=== PATIENT | female | born 1955 | race Caucasian/White ===

== ENCOUNTER 2017-11-19 11:55 | Emergency (ER) | payer OTHER, SELFPAY ==
[2017-11-19 12:04] VITALS: BP 149/82; PULSE 72; RESP 15; TEMP 36.8; O2SAT 97; BMI 25.5
[2017-11-19] MEDS: ONDANSETRON 4 MG/2 ML INJ IV (12:30)
[2017-11-19] MEDS: SODIUM CHLORIDE 0.9% 1,000 ML 1000 ML IV (12:30)
[2017-11-19 12:40] LABS: Alanine Aminotransferase 28 IU/L (9-52); Albumin 4.6 g/dL (3.5-5.0); Albumin Globulin Ratio 1.8 (1.0-2.8); Alkaline Phosphatase 71 U/L (38-126); Aspartate Aminotransferase 24 IU/L (14-36); BUN Creatinine Ratio 24.3 (6-22); Bilirubin Total 0.7 mg/dL (0.2-1.3); Blood Urea Nitrogen 17 mg/dL (7-17); Calcium 9.2 mg/dL (8.4-10.2); Carbon Dioxide 26 mmol/L (22-32); Chloride 104 mmol/L (98-107); Estimated Glomerular Filt Rate > 60.0 mL/min (>60); Globulin 2.6 g/dL (1.7-4.1); Glucose 112 mg/dL (80-110); HEMOLYSIS < 15 (0-50); Lipase 379 U/L (23-300); Potassium 3.7 mmol/L (3.4-5.1); Sodium 142 mmol/L (137-145); Total Protein 7.2 g/dL (6.3-8.2)
--- NOTE | 2017-11-19 12:45 | ED_ITS ---
HPI - Dizziness <Eloise Hollingsworth PA-C - Last Filed: 11/19/17 21:26> General Chief Complaint: Dizziness Stated Complaint: DIZZINESS,NAUSEA Time Seen by Provider: 11/19/17 12:19 Source: patient Mode of arrival: ambulatory Limitations: no limitations History of Present Illness HPI Narrative: This 62 year old female comes to ED today due to onset of vomiting and dry heaves this morning with nausea. She states that her head feels funny, like her brain is foggy, and feels like she could tip over when walking. She states that she feels weak all over, no focal weakness. She states she has slight headache. She denies any vision change. She denies any abdominal pain. She denies any chest pain, dyspnea, pain in the extremities. She denies any recent upper respiratory symptoms, illness, or fever. She did eat dinner out last night and felt normal yesterday, did not notice any undercooked food. She denies any urinary symptoms, bowel habit changes or diarrhea. She thinks that she vomited 3 times this morning and had dry heaves frequently. States she had some coffee and half a doughnut, nothing else to eat today. She states that she is generally healthy with no chronic medical conditions at all Related Data Previous Rx's Medication Instructions Recorded meclizine 25 mg PO Q4-6H PRN #14 tab 11/19/17 ondansetron 4 mg PO Q6-8H PRN #7 tab 11/19/17 Allergies Allergy/AdvReac Type Severity Reaction Status Date / Time SULFA Allergy Severe HIVES, Uncoded 05/25/17 12:16 ITCHING PENICILLIN Allergy Unknown Uncoded 05/25/17 12:16 Review of Systems <Eloise Hollingsworth PA-C - Last Filed: 11/19/17 21:26> Review of Systems All systems reviewed & are unremarkable except as noted in HPI and below PFSH <Eloise Hollingsworth PA-C - Last Filed: 11/19/17 21:26> Comment: denies ETOH or street drugs Exam <KIMBER Suarez Last Filed: 11/19/17 21:26> Narrative Exam Narrative: GENERAL APPEARANCE: Patient sitting comfortably, in no distress. HEENT: PERRL, EOMI, there are few beats of horizontal nystagmus noted with rightward gaze. Normal ear canals, right TM dull and slightly retracted with scarring, left is normal aside from scar, normal oropharynx NECK: Supple, no masses LUNGS: Clear to auscultation bilaterally. HEART: Rate and rhythm regular without murmur, normal S1 and S2, no S3 or S4. No carotid bruit ABDOMEN: Soft, NT, ND, + BS x 4 quadrants NEUROLOGIC: Alert and oriented, normal speech, and coordination. +Hallpike maneuver EXTREMITIES: no cyanosis or edema, pedal pulses intact, no calf tenderness Initial Vital Signs Initial Vital Signs: Vital Signs Temperature 98.2 F 11/19/17 12:04 Pulse Rate 72 11/19/17 12:04 Respiratory Rate 15 11/19/17 12:04 Blood Pressure 149/82 H 11/19/17 12:04 Pulse Oximetry 97 11/19/17 12:04 <Sadaf Leigh DO - Last Filed: 11/20/17 08:49> Initial Vital Signs Initial Vital Signs: Vital Signs Temperature 98.2 F 11/19/17 12:04 Pulse Rate 72 11/19/17 12:04 Respiratory Rate 15 11/19/17 12:04 Blood Pressure 149/82 H 11/19/17 12:04 Pulse Oximetry 97 11/19/17 12:04 Course <Eloise Hollingsworth PA-C - Last Filed: 11/19/17 21:26> Course Narrative: Patient reported improvement in LAUREN following fluids, and was able to ambulate and move more comfortably after meclizine. She reported improvement in nausea initially after zofran and was tolerating fluids, requested a 2nd dose and had continued improvement. She did not have recurrent dry heaves or vomiting while here. advised continuing meclizine, avoid driving , and PCP follow-up if not better over the next few days. Advised of need for further evaluation and referral if not improving, as well as return if any acutely worsening symptoms again and she is agreeable Orders Ordered: Discontinued Medications Sodium Chloride (Normal Saline 0.9%) 1,000 mls @ 1,000 mls/hr IV BOLUS ONE Stop: 11/19/17 13:18 Last Infusion: 11/19/17 13:33 Dose: 0 mls/hr Admin: 11/19/17 12:30 Dose: 1,000 mls/hr Meclizine HCl (Antivert) 25 mg PO NOW ONE Stop: 11/19/17 12:46 Last Admin: 11/19/17 12:51 Dose: 25 mg Meclizine HCl (Antivert) 25 mg PO NOW ONE Stop: 11/19/17 13:49 Last Admin: 11/19/17 13:57 Dose: 25 mg Ondansetron HCl (Zofran) 4 mg IV NOW ONE Stop: 11/19/17 12:20 Last Admin: 11/19/17 12:30 Dose: 4 mg Ondansetron HCl (Zofran Odt) 4 mg PO NOW ONE Stop: 11/19/17 14:35 Last Admin: 11/19/17 14:36 Dose: 4 mg Vital Signs - 8 hr 11/19/17 14:00 11/19/17 15:23 Temperature 98.1 F Pulse Rate 73 75 Respiratory Rate 19 20 Blood Pressure 145/70 H Blood Pressure [Right Arm] 145/74 H Pulse Oximetry 94 97 <Sadaf Leigh DO - Last Filed: 11/20/17 08:49> Orders Ordered: Discontinued Medications Sodium Chloride (Normal Saline 0.9%) 1,000 mls @ 1,000 mls/hr IV BOLUS ONE Stop: 11/19/17 13:18 Last Infusion: 11/19/17 13:33 Dose: 0 mls/hr Admin: 11/19/17 12:30 Dose: 1,000 mls/hr Meclizine HCl (Antivert) 25 mg PO NOW ONE Stop: 11/19/17 12:46 Last Admin: 11/19/17 12:51 Dose: 25 mg Meclizine HCl (Antivert) 25 mg PO NOW ONE Stop: 11/19/17 13:49 Last Admin: 11/19/17 13:57 Dose: 25 mg Ondansetron HCl (Zofran) 4 mg IV NOW ONE Stop: 11/19/17 12:20 Last Admin: 11/19/17 12:30 Dose: 4 mg Ondansetron HCl (Zofran Odt) 4 mg PO NOW ONE Stop: 11/19/17 14:35 Last Admin: 11/19/17 14:36 Dose: 4 mg Vital Signs - 8 hr 11/19/17 14:00 11/19/17 15:23 Temperature 98.1 F Pulse Rate 73 75 Respiratory Rate 19 20 Blood Pressure 145/70 H Blood Pressure [Right Arm] 145/74 H Pulse Oximetry 94 97 MDM - Dizziness <Eloise Hollingsworth PA-C - Last Filed: 11/19/17 21:26> Lab Data Attestation: I reviewed the patient's lab results. Result diagrams: 11/19/17 12:14 11/19/17 12:14 Lab Results 11/19/17 11/19/17 Range/Units 12:14 12:14 WBC 7.3 (4.5-11.0) X10^3/uL RBC 4.42 (4.0-5.2) X10^6/uL Hgb 13.2 (12.0-16.0) g/dL Hct 38.0 (36-46) % MCV 86.0 (80-100) fL MCH 29.9 (26-34) PG MCHC 34.7 (30-36) % RDW 12.4 (11.6-14.8) % Plt Count 201 (150-400) X10^3/uL Neut % (Auto) 84.9 H (50-75) % Lymph % (Auto) 10.2 L (25-40) % Bertie % (Auto) 3.2 (3-14) % Eos % (Auto) 0.9 L (2-4) % Baso % (Auto) 0.8 (0-2) % Neut # (Auto) 6200 H (4655-9063) /uL Sodium 142 (137-145) mmol/L Potassium 3.7 (3.4-5.1) mmol/L Chloride 104 (98-107) mmol/L Carbon Dioxide 26 (22-32) mmol/L BUN 17 (7-17) mg/dL Creatinine 0.70 (0.52-1.04) mg/dL Estimated GFR > 60.0 (>60) mL/min BUN/Creatinine Ratio 24.3 H (6-22) Glucose 112 H (80-110) mg/dL Calcium 9.2 (8.4-10.2) mg/dL Total Bilirubin 0.7 (0.2-1.3) mg/dL AST 24 (14-36) IU/L ALT 28 (9-52) IU/L Alkaline Phosphatase 71 (38-126) U/L Total Protein 7.2 (6.3-8.2) g/dL Albumin 4.6 (3.5-5.0) g/dL Globulin 2.6 (1.7-4.1) g/dL Albumin/Globulin Ratio 1.8 (1.0-2.8) Lipase 379 H (23-300) U/L Urine Dip Bedside Urine Glucose Negative Bedside Urine Bilirubin - Negative Bedside Urine Ketone + 15 Urine Specific [place] 1.015 Bedside Urine Occult Blood - Negative Bedside Urine pH 8.0 Bedside Urine Protein - Negative Bedside Urine Urobilinogen - Negative Bedside Urine Nitrite - Negative Bedside Urine Leukocytes - Negative Esterase ECG Data Attestation: I personally reviewed and interpreted this ECG as follows: ( normal sinus rhythm with rate 71, normal axis) <Sadaf Leigh DO - Last Filed: 11/20/17 08:49> Lab Data Attestation: I reviewed the patient's lab results. Lab Results 11/19/17 11/19/17 Range/Units 12:14 12:14 WBC 7.3 (4.5-11.0) X10^3/uL RBC 4.42 (4.0-5.2) X10^6/uL Hgb 13.2 (12.0-16.0) g/dL Hct 38.0 (36-46) % MCV 86.0 (80-100) fL MCH 29.9 (26-34) PG MCHC 34.7 (30-36) % RDW 12.4 (11.6-14.8) % Plt Count 201 (150-400) X10^3/uL Neut % (Auto) 84.9 H (50-75) % Lymph % (Auto) 10.2 L (25-40) % Bertie % (Auto) 3.2 (3-14) % Eos % (Auto) 0.9 L (2-4) % Baso % (Auto) 0.8 (0-2) % Neut # (Auto) 6200 H (2648-0323) /uL Sodium 142 (137-145) mmol/L Potassium 3.7 (3.4-5.1) mmol/L Chloride 104 (98-107) mmol/L Carbon Dioxide 26 (22-32) mmol/L BUN 17 (7-17) mg/dL Creatinine 0.70 (0.52-1.04) mg/dL Estimated GFR > 60.0 (>60) mL/min BUN/Creatinine Ratio 24.3 H (6-22) Glucose 112 H (80-110) mg/dL Calcium 9.2 (8.4-10.2) mg/dL Total Bilirubin 0.7 (0.2-1.3) mg/dL AST 24 (14-36) IU/L ALT 28 (9-52) IU/L Alkaline Phosphatase 71 (38-126) U/L Total Protein 7.2 (6.3-8.2) g/dL Albumin 4.6 (3.5-5.0) g/dL Globulin 2.6 (1.7-4.1) g/dL Albumin/Globulin Ratio 1.8 (1.0-2.8) Lipase 379 H (23-300) U/L Urine Dip Bedside Urine Glucose Negative Bedside Urine Bilirubin - Negative Bedside Urine Ketone + 15 Urine Specific [place] 1.015 Bedside Urine Occult Blood - Negative Bedside Urine pH 8.0 Bedside Urine Protein - Negative Bedside Urine Urobilinogen - Negative Bedside Urine Nitrite - Negative Bedside Urine Leukocytes - Negative Esterase ECG Data Attestation: I personally reviewed and interpreted this ECG as follows: Prior ECG tracings: available for review Interpretation: Sinus rhythm rate [address] changes similar to previous EKG here interval 156 QRS 12 QTC 416 Discharge Plan Departure Patient Disposition: Home Clinical Impression: Benign paroxysmal positional vertigo, Nausea & vomiting Discharge Date/Time: 11/19/17 15:25 Interventions: ED Discharge Assessment Last Done: 11/19/17 15:23 Instructions: DI for Benign Paroxysmal Positional Vertigo Activity Restrictions/Additional Instructions: You appear to have vertigo which has caused your nausea. Since you are feeling better, it is okay for you to monitor at home, but as we talked about, you must return right away if you have any new or acutely worsening symptoms again. Please rest, and take the motion sickness medicine meclizine to help with the dizziness and nausea. Avoid turning your head sharply as we talked about, and change positions very slowly. You should see your PCP if this is not getting better over the next few days. You should not drive until it is resolved, and you should not drive while taking the meclizine as it can make you sleepy. You can add the additional antinausea medicine if you need it (Odansetron). Prescriptions: New meclizine 25 mg tablet 25 mg PO Q4-6H PRN (Reason: dizziness) Qty: 14 RF: 0 ondansetron 4 mg tablet,disintegrating 4 mg PO Q6-8H PRN (Reason: nausea and vomiting) Qty: 7 RF: 0 <Sadaf Leigh DO - Last Filed: 11/20/17 08:49> Cosign ED Attending Anilature Attestation: I was immediately available in the department for consultation. Documentation has been reviewed. I agree with assessment and plan.
[2017-11-19] MEDS: MECLIZINE HCL 12.5 MG TABLET 25 MG PO ×2 (12:51→13:57)
[2017-11-19 12:53] VITALS: BP 148/71; PULSE 71; RESP 15; O2SAT 99
[2017-11-19 12:53] LABS: Add Manual Diff / Slide Review NO; Basophils Percent Auto 0.8 % (0-2); Eosinophils Percent Auto 0.9 % (2-4); Hemoglobin 13.2 g/dL (12.0-16.0); Lymphocytes Percent Auto 10.2 % (25-40); Mean Corpuscular HGB Conc 34.7 % (30-36); Mean Corpuscular Hemoglobin 29.9 PG (26-34); Monocytes Percent Auto 3.2 % (3-14); Neutrophils Absolute Auto 6200 /uL (3000-5900); Neutrophils Percent Auto 84.9 % (50-75); Platelet Count 201 X10^3/uL (150-400); Red Blood Cell Count 4.42 X10^6/uL (4.0-5.2); Red Cell Distribution Width 12.4 % (11.6-14.8); White Blood Cell Count 7.3 X10^3/uL (4.5-11.0)
--- NOTE | 2017-11-19 12:54 | PC.NURSE ---
Patient drifting off to sleep and o2 saturation decreases to 84% on RA. Pt placed on 1 L NC. 99% o2 when awake. 93% o2 when sleeping.
[2017-11-19 14:00] VITALS: BP 145/74; PULSE 73; RESP 19; O2SAT 94
[2017-11-19] MEDS: ONDANSETRON 4 MG ODT PO (14:36)
[2017-11-19 15:23] VITALS: BP 145/70; PULSE 75; RESP 20; TEMP 36.7; O2SAT 97
--- NOTE | 2017-11-24 16:08 | PC.NURSE ---
Pt feeling better since visit,pt has follow up visit scheduled. Pt had no improvement to suggest.
== END 2017-11-19 15:25 | disposition home or self-care (01) ==
PROVIDERS: Emergency Provider Internal Medicine
DX: H81.10 Benign paroxysmal vertigo, unspecified ear (principal); R11.2 Nausea with vomiting, unspecified
CPT/HCPCS: 80053; 81003; 83690; 85025; 93005; 96361; 96374; 99283; 99284; J2405

== ENCOUNTER → 2018-02-27 14:38 | Outpatient (CLI) | payer OTHER, SELFPAY ==
--- NOTE | 2018-02-27 | DI.MG.S_ITS ---
BILATERAL DIGITAL SCREENING MAMMOGRAM 3D/2D WITH CAD: 02/27/2018 CLINICAL: Routine screening. Comparison is made to exam dated: 01/27/2015 mammogram - [facility]. The tissue of both breasts is heterogeneously dense. This may lower the sensitivity of mammography. Current study was also evaluated with a Computer Aided Detection (CAD) system. There are benign calcifications in the right breast. No significant masses, calcifications, or other findings are seen in either breast. There has been no significant interval change. IMPRESSION: There is no mammographic evidence of malignancy. A 1 year screening mammogram is recommended. This exam was interpreted at Station ID: [id number]. NOTE: For mammograms, a report in lay terms will be sent to the patient. Approximately 15% of breast malignancies will not be visualized mammographically. In the management of a palpable breast mass, a negative mammogram must not discourage biopsy of a clinically suspicious lesion. Electronically Signed By: Rusty vigil/carrol:03/02/2018 12:31:20 letter sent: Normal Exam ACR BI-RADS Category 2: Benign Finding(s) 3342F
== END ==
PROVIDERS: PCP Nurse Practitioner Family; Visit Provider Nurse Practitioner Family
DX: Z12.31 Encounter for screening mammogram for malignant neoplasm of breast (principal); M85.851 Other specified disorders of bone density and structure, right thigh; Z78.0 Asymptomatic menopausal state
CPT/HCPCS: 77063; 77067; 77080

== ENCOUNTER → 2018-06-01 14:25 | Outpatient (CLI) | payer OTHER, SELFPAY ==
--- NOTE | 2018-06-01 | DI.US.S_ITS ---
PROCEDURE: US ABDOMEN COMPLETE INDICATIONS: RIGHT UPPER QUADRANT PAIN/HISTORY OF GALLSTONES TECHNIQUE: Real-time scanning was performed of the abdominal and retroperitoneal organs, with image documentation. COMPARISON: [facility], CT, ABDOMEN/PELVIS WITH CONTRAST, 05/11/2013, 6:52. FINDINGS: Liver: Liver is normal in size and homogeneous in echotexture. Gallbladder: Multiple gallstones. No gallbladder wall thickening or pericholecystic fluid. Biliary ducts: Intrahepatic bile ducts are non-dilated. Extrahepatic bile duct caliber measures 5.3 mm. Normal is 6-7 mm or less in diameter, or 10 mm or less post-cholecystectomy. Pancreas: Visualized portions of the pancreas are sonographically normal. Spleen: Spleen is normal in size and homogeneous in echotexture. Kidneys: Kidneys are normal in size and echotexture. Right kidney measures 11.0 cm long; left kidney measures 10.0 cm long. No hydronephrosis or nephrolithiasis. No solid masses. Right renal cyst measuring 8 mm. Aorta: Mild ectasia of the proximal aorta measuring 2.9 cm. Iliacs: Proximal common iliac arteries are normal in caliber at less than 2.5 cm. IVC: Intrahepatic inferior vena cava is patent. Miscellaneous: No free abdominal fluid. IMPRESSION: 1. Cholelithiasis without acute cholecystitis. 2. Ectasia of the abdominal aorta. Dictated by: Rolando IBARRA Interpreted: Tico Waters MD on 06/01/2018 at 15:53 Approved by: Edward Walton M.D. on 06/01/2018 at 17:40
== END ==
PROVIDERS: PCP Nurse Practitioner Family; Visit Provider Nurse Practitioner Family
DX: R10.11 Right upper quadrant pain (principal); K80.20 Calculus of gallbladder without cholecystitis without obstruction; I77.811 Abdominal aortic ectasia
CPT/HCPCS: 76700

== ENCOUNTER 2018-07-13 08:33 | Day surgery (SDC) | payer OTHER, SELFPAY ==
[2018-07-03 09:18] VITALS: BMI 27.4
[2018-07-13] VITALS (9 sets, daily range): BP systolic 118–143; BP diastolic 66–78; PULSE 60–79; RESP 13–18; TEMP 36.1–36.2; O2SAT 96–100; BMI 24.4
--- NOTE | 2018-07-13 | PATH_ITS ---
[facility] Accession Number: [id number] . 01 Material submitted: . gallbladder - GALLBLADDER . 02 Diagnosis: Gallbladder, Cholecystectomy: Chronic cholecystitis with cholelithiasis. No evidence of dysplasia or malignancy. [facility]07/17/2018 . 02 Electronically signed: . Caity Orozco MD, Pathologist NPI- [id number] . 01 Gross description: . Received in formalin, labeled gallbladder, is an intact gallbladder (8.7 cm, diameter-2.5 cm) with mar-green smooth shiny serosa and a patent cystic duct. A lymph node (0.8 x 0.6 x 0.5 cm) is identified. The lumen contains green viscous bile and multiple watkins-yellow solid smooth hard calculi (6.2 x 3.5 x 1.5 cm in aggregate) with clark crystalline cut surfaces. The mucosa is green, smooth and flat. The wall is up to 0.1 cm thick. No nodules, masses or lesions are identified. Section code: (A1) cystic duct resection margin and two serial sections from the body; (A2) two longitudinal sections from the fundus; (A3) one bisected lymph node. ([id number]) /MRV . 02 Pathologist provided ICD-10: K80.60 . 02 CPT . 260473 Performed at: 01 [facility] [address] [id number] MD Rusty Mendoza MD Phone: [phone] Performed at: 02 [facility] [address] [place], [place] [id number] MD Caity Orozco MD Phone: [phone]
[2018-07-13] MEDS: LACTATED RINGERS 1,000 ML 42 ML IV (08:58)
--- NOTE | 2018-07-13 09:24 | PM.PREOP ---
Pre-operative Note Interval Note History & Physical reviewed/Exam performed by Physician: Yes Changes to H&P: No H&P completed within 30 days and has changed as indicated here:: see note June 19
--- NOTE | 2018-07-13 10:05 | SUR.OPER ---
Supine on padded OR bed, head on pillow, arms secured on padded arm boards at <90 degrees abduction, legs uncrossed, safety belt at thigh, tape over blanket over lower legs.
[2018-07-13] MEDS: levoFLOXacin 500 MG/100 ML PIGGYBACK 100 MG IV (10:14)
[2018-07-13] MEDS: BUPIVACAINE 0.5% (PF) VIAL 30 ML INJ (10:15)
--- NOTE | 2018-07-13 11:01 | PM.OP.1 ---
Operative Date/Time/Diagnoses Date of procedure: 07/13/18 Time of procedure: 10:44 Pre-op diagnosis: Cholelithiasis. Chronic cholecystitis. Post-op diagnosis: same Procedure & Clinicians Procedure: Laparoscopic cholecystectomy Same procedure as scheduled: Yes Indications: Symptomatic gallbladder disease Surgeon: Fer Goyal Click Yes if Unassisted: Yes Anesthesia Type: General Operative Notes Findings: Gallbladder with multiple stones Closure Type: primary Specimen(s): other (Gallbladder) Prosthetic devices, grafts, tissues, transplants, or devices: None Estimated Blood Loss (mL): 5 Blood products transfused: none Procedure in detail: The patient was placed supine on the operating room table and underwent general endotracheal anesthesia. The patient was prepped and draped in the usual fashion. Local anesthetic was infiltrated near the umbilicus and curvilinear incision made and carried down through fascia into the peritoneal cavity. Stay sutures of 0 Vicryl were placed in the fascia. A 12 mm port was placed. The abdomen was insufflated. The patient was repositioned. Local anesthetic was infiltrated in 3 areas under the right costal margin and 3D incisions made followed by placing 3 5 mm ports under direct laparoscopic camera vision internally. The gallbladder was grasped and elevated. Dissection was begun near its end. Ductal structure singular nature going directly gallbladder was identified and from surrounding structures. Three clips were placed across the was divided leaving 2 in the patient. The duct was rather small. I had excellent visualization of the common duct as well as the cystic duct. There was no narrowing of the common duct. Vascular structures were identified and clipped and divided leaving 2 in the patient.. The gallbladder was then dissected from its bed in the liver using cautery. There was no spillage. It was detached and removed through the umbilical port. the port sites were all irrigated. The stay sutures at the umbilicus were elevated. A 2 0 PDS suture was placed between them. The Vicryl and PDS sutures were then tied. The skin in all areas was closed with interrupted 4 0 Vicryl subcuticular stitches. Steri-Strips and Mastisol were applied. Band-Aids were placed and the patient was awakened, extubated and taken to the recovery area in good condition. Complications: none Condition: stable Disposition: PACU Plan for aftercare: Follow-up in the office
[2018-07-13] MEDS: HYDROMORPHONE 2 MG INJ 0.5 MG IV ×2 (11:15→11:23)
[2018-07-13] MEDS: OXYCODONE IR 5 MG TABLET PO (11:39)
== END 2018-07-13 13:00 | disposition home or self-care (01) ==
PROVIDERS: PCP Nurse Practitioner Family; Visit Provider Specialist
PROC: 0FT44ZZ Resection of Gallbladder, Percutaneous Endoscopic Approach (ICD-10-PCS; CPT 47562; principal; 2018-07-13 09:45)
DX: K80.10 Calculus of gallbladder with chronic cholecystitis without obstruction (principal)
CPT/HCPCS: 47562; J1100; J1170; J1956; J2250; J2405; J2704; J3010